=== PATIENT | male | born 1975 | race Caucasian/White ===

== ENCOUNTER 2018-11-03 18:04 | Emergency (ER) | payer SELFPAY ==
--- NOTE | 2018-11-03 19:09 | RAD REPORT ---
EXAM DESCRIPTION: CT - Stone Protocol - 11/03/2018 7:00 pm CLINICAL HISTORY: Flank pain. FLANK PAIN COMPARISON: Stone Protocol dated 04/09/2017 TECHNIQUE: Axial images were obtained without oral or IV contrast. Lack of contrast limits solid org an and vascular assessment. The [id number] spans the entirety of the system partially obscuring uppermost abdomen and lung bases. Coronal reformatted images were obtained and reviewed. All CT scans are performed using dose optimization technique as appropriate and may include automated exposure control or mA/KV adjustment according to patient size. FINDINGS: The lower lung miranda are clear. Imaged portions of the liver and spleen show no suspicious findings on non-contrast imaging. The panc reas and adrenal glands are normal. No pathologic lymphadenopathy in the abdomen or pelvis. 5 mm calculus is present in the inferior left kidney without hydronephrosis. Additional punctate uppe r pole left renal calculus. No additional stone seen. No bowel obstruction, free air, free fluid or abscess. Appendectomy. No significant bony abnormality. IMPRESSION: Left nephrolithiasis without hydronephrosis.
[2018-11-03 19:10] LABS: Absolute Lymphocytes (CBC) 3.1 K/uL (0.7-4.9); Absolute Monocytes 1.1 K/uL (0.1-1.3); Absolute Neutrophil 8.2 K/uL (1.8-8.0); Basophils % 0.2 % (0-1.3); Hematocrit 50.7 % (39.6-49.0); Lymphocytes % 24.9 % (15.3-44.8); Monocytes % 8.8 % (3.3-12.3); RBC Red Blood Cell Count 5.76 M/uL (4.33-5.43)
[2018-11-03] MEDS ORDERED: MORPHINE 4 MG/ML SYR ONE ×2 (19:16→21:00)
[2018-11-03] MEDS ORDERED: KETOROLAC 30 MG/ML INJ ONE (19:16)
[2018-11-03] MEDS ORDERED: NA CHLORIDE 0.9% 1,000 ML ONE (19:16)
[2018-11-03] MEDS ORDERED: ONDANSETRON 4 MG/2 ML VIAL ONE (19:16)
[2018-11-03 19:19] LABS: ALT/SGPT 52 U/L (12-78); AST/SGOT 20 U/L (15-37); Albumin 3.9 g/dL (3.4-5.0); Alkaline Phosphatase 115 U/L (45-117); BUN Blood Urea Nitrogen 14 mg/dL (7-18); Bicarbonate 26 mmol/L (21-32); Bilirubin Direct < 0.1 mg/dL (0-0.2); Bilirubin Total 0.3 mg/dL (0.2-1.0); Glucose Level 85 mg/dL (74-106); Lipase 119 U/L (73-393); Potassium 3.7 mmol/L (3.5-5.1); Protein, Total 8.2 g/dL (6.4-8.2); Sodium Level 142 mmol/L (136-145)
[2018-11-03 19:20] LABS: Urine Blood TRACE (NEG); Urine Glucose NEGATIVE (NEG); Urine Protein NEGATIVE (NEG); Urine pH 5.5 (5.0-7.0)
[2018-11-03 19:20] LABS: Urine Bacteria <20 /HPF (NONE SEEN); Urine Culture Reflex Order NOT NEEDED
[2018-11-03] MEDS ORDERED: CIPROFLOXACIN HCL 500 MG TAB ONE (20:59)
[2018-11-03] MEDS ORDERED: TAMSULOSIN 0.4 MG SR CAP ONE (21:00)
--- NOTE | 2018-11-03 21:19 | EDPHYS ---
Physician Documentation [facility] Name: Joel Escamilla Jr Age: 43 yrs Sex: Male : 1975 Arrival Date: 11/03/2018 Time: 18:06 Bed 2 Private MD: ED Physician Lang Bonilla HPI: 11/03 19:30 This 43 yrs old Male presents to ER via Ambulatory with complaints of pm1 Possible Kidney Stone. 19:30 The patient complains of pain in the left low back and right low back. The pain pm1 radiates to the right lower quadrant and left lower quadrant. Onset: The symptoms/episode began/occurred this morning. Modifying factors: The symptoms are alleviated by nothing. the symptoms are aggravated by nothing. Associated signs and symptoms: Pertinent positives: nausea, vomiting, Pertinent negatives: dysuria, fever. Severity of pain: in the emergency department the pain is actually worse. The patient has experienced similar episodes in the past, a few times, and the symptoms today are exactly the same, to previous kidney stones. The patient has not recently seen a physician. Historical: - Allergies: 18:48 No Known Allergies; ph - Home Meds: 18:48 None [Active]; ph - PMHx: 18:48 Ulcers; Kidney stones; ph - PSHx: 18:48 None; ph - Immunization history:: Adult Immunizations unknown. - Social history:: Smoking status: Patient uses tobacco products, denies chronic smoking, but will smoke occasionally. - Ebola Screening: : No symptoms or risks identified at this time. ROS: 19:30 Constitutional: Negative for fever, chills, and weight loss, Eyes: Negative for injury, pm1 pain, redness, and discharge, ENT: Negative for injury, pain, and discharge, Neck: Negative for injury, pain, and swelling, Cardiovascular: Negative for chest pain, palpitations, and edema, Respiratory: Negative for shortness of breath, cough, wheezing, and pleuritic chest pain. 19:30 : Negative for injury, bleeding, discharge, and swelling, MS/Extremity: Negative for injury and deformity, Skin: Negative for injury, rash, and discoloration, Neuro: Negative for headache, weakness, numbness, tingling, and seizure. 19:30 Abdomen/GI: Positive for abdominal pain, nausea and vomiting, of the right lower quadrant and left lower quadrant. 19:30 Back: Positive for flank pain, bilaterally, Negative for pain with movement. Exam: 19:30 Constitutional: This is a well developed, well nourished patient who is awake, alert, pm1 and in no acute distress. Head/Face: Normocephalic, atraumatic. Eyes: Pupils equal round and reactive to light, extra-ocular motions intact. Lids and lashes normal. Conjunctiva and sclera are non-icteric and not injected. Cornea within normal limits. Periorbital areas with no swelling, redness, or edema. ENT: Nares patent. No nasal discharge, no septal abnormalities noted. Tympanic membranes are normal and external auditory canals are clear. Oropharynx with no redness, swelling, or masses, exudates, or evidence of obstruction, uvula midline. Mucous membranes moist. Neck: Trachea midline, no thyromegaly or masses palpated, and no cervical lymphadenopathy. Supple, full range of motion without nuchal rigidity, or vertebral point tenderness. No Meningismus. Chest/axilla: Normal chest wall appearance and motion. Nontender with no deformity. No lesions are appreciated. Cardiovascular: Regular rate and rhythm with a normal S1 and S2. No gallops, murmurs, or rubs. Normal PMI, no JVD. No pulse deficits. Respiratory: Lungs have equal breath sounds bilaterally, clear to auscultation and percussion. No rales, rhonchi or wheezes noted. No increased work of breathing, no retractions or nasal flaring. Abdomen/GI: Soft, non-tender, with normal bowel sounds. No distension or tympany. No guarding or rebound. No evidence of tenderness throughout. 19:30 Skin: Warm, dry with normal turgor. Normal color with no rashes, no lesions, and no evidence of cellulitis. MS/ Extremity: Pulses equal, no cyanosis. Neurovascular intact. Full, normal range of motion. 19:30 Back: pain, that is moderate, of the left low back and right low back, normal spinal alignment noted. 19:30 Neuro: Orientation: is normal, Motor: is normal, moves all fours, Sensation: is normal, no obvious gross deficits, Gait: is steady, at a normal pace, without difficulty. Vital Signs: 18:48 BP 164 / 121; Pulse 108; Resp 22; Temp 98.3; Pulse Ox 98% on R/A; Weight 108.86 kg; ph Height 5 ft. 10 in. (177.80 cm); Pain 8/10; 19:53 BP 133 / 86; Pulse 97; Resp 17; Pulse Ox 100% on R/A; Pain 8/10; ed1 19:54 Pain 8/10; ed1 19:54 Pain 8/10; ed1 21:10 BP 122 / 81; Pulse 75; Resp 18; Pulse Ox 100% on R/A; Pain 6/10; ed1 21:11 Pain 6/10; ed1 18:48 Body Mass Index 34.44 (108.86 kg, 177.80 cm) ph MDM: 18:36 Patient medically screened. pm1 20:28 Data reviewed: vital signs. Data interpreted: Pulse oximetry: on room air is 100 %. pm1 Interpretation: normal. 21:16 Counseling: I had a detailed discussion with the patient and/or guardian regarding: the pm1 historical points, exam findings, and any diagnostic results supporting the discharge/admit diagnosis, lab results, radiology results, the need for outpatient follow up, to return to the emergency department if symptoms worsen or persist or if there are any questions or concerns that arise at home. 11/03 18:43 Order name: Basic Metabolic Panel pm1 11/03 18:43 Order name: CBC with Diff; Complete Time: 19:30 pm1 11/03 18:43 Order name: Creatinine for Radiology; Complete Time: 19:30 pm1 11/03 18:43 Order name: Hepatic Function; Complete Time: 19:30 pm1 11/03 18:43 Order name: Lipase; Complete Time: 19:30 pm1 11/03 18:43 Order name: Urine Microscopic Only; Complete Time: 19:30 pm1 11/03 18:43 Order name: CT Stone Protocol; Complete Time: 19:30 pm1 11/03 18:44 Order name: Basic Metabolic Panel; Complete Time: 19:30 EDMS 11/03 19:07 Order name: Urine Dipstick--Ancillary (enter results); Complete Time: 19:30 ar5 11/03 18:43 Order name: IV Saline Lock; Complete Time: 18:51 pm1 11/03 18:43 Order name: Labs collected and sent; Complete Time: 18:52 pm1 11/03 18:43 Order name: Urine Dipstick-Ancillary (obtain specimen); Complete Time: 18:54 pm1 Administered Medications: 19:18 Drug: morphine 4 mg Route: IVP; Site: right antecubital; lp1 19:54 Follow up: Pain 8/10 Adult; Response: No adverse reaction; Pain is unchanged, physician ed1 notified 19:19 Drug: NS 0.9% 1000 ml Route: IV; Rate: 1 bolus; Site: right antecubital; lp1 20:54 Follow up: IV Status: Completed infusion; IV Intake: 1000ml ed1 19:19 Drug: TORadol 30 mg Route: IVP; Site: right antecubital; lp1 19:54 Follow up: Pain 8/10 Adult; Response: No adverse reaction; Pain is unchanged, physician ed1 notified 19:19 Drug: Zofran 4 mg Route: IVP; Site: right antecubital; lp1 19:55 Follow up: Response: No adverse reaction; Nausea is decreased ed1 20:53 Drug: morphine 4 mg Route: IVP; Site: right antecubital; ed1 21:11 Follow up: Pain 6/10 Adult; Response: No adverse reaction; Pain is decreased ed1 20:54 Drug: Flomax 0.4 mg Route: PO; ed1 21:12 Follow up: Response: No adverse reaction ed1 20:54 Drug: Cipro 500 mg Route: PO; ed1 21:12 Follow up: Response: No adverse reaction ed1 Disposition: 11/03/18 21:18 Discharged to Home. Impression: Left nephrolithiasis without hydronephrosis, Low back pain. - Condition is Stable. - Discharge Instructions: Flank Pain, Adult, Kidney Stones, [id number], Dietary Guidelines to Help Prevent Kidney Stones. - Prescriptions for Tylenol- Codeine #3 300-30 mg Oral Tablet - take 2 tablets by ORAL route every 6 hours As needed; 20 tablet. Zofran 4 mg Oral Tablet - take 1 tablet by ORAL route every 12 hours As needed; 20 tablet. Flomax 0.4 mg Oral Capsule, Sust. Release 24 hr - take 1 capsule by ORAL route once daily 1/2 hour following the same meal each day; 10 capsule. Cipro 500 mg Oral Tablet - take 1 tablet by ORAL route every 12 hours for 7 days; 14 tablet. - Medication Reconciliation Form, Thank You Letter, Antibiotic Education, Prescription Opioid Use form. - Follow up: Emergency Department; When: As needed; Reason: Worsening of condition. Follow up: Mesfin Girard MD; When: 2 - 3 days; Reason: Recheck today's complaints, Continuance of care, Re-evaluation by your physician. - Problem is new. - Symptoms have improved. Addendum: 11/07/2018 06:56 Co-signature as Attending Physician, Lang Bonilla MD I agree with the assessment and c heard plan of care. Signatures: Dispatcher [employer] EDNV Lang Bonilla MD MD cha Riggs, Erika, DIETITIAN HELPER DIETITIAN HELPER ed1 Fely Armijo RN RN lp1 Maxine Benjamin RN RN Bhavesh Mensah, LANDMEN LANDMEN pm1 Corrections: (The following items were deleted from the chart) 11/03 21:29 21:18 11/03/2018 21:18 Discharged to Home. Impression: Left nephrolithiasis without ed1 hydronephrosis; Low back pain. Condition is Stable. Forms are Medication Reconciliation Form, Thank You Letter, Antibiotic Education, Prescription Opioid Use. Follow up: Emergency Department; When: As needed; Reason: Worsening of condition. Follow up: Mesfin Girard; When: 2 - 3 days; Reason: Recheck today's complaints, Continuance of care, Re-evaluation by your physician. Problem is new. Symptoms have improved. pm1
--- NOTE | 2018-11-03 21:19 | ER ---
Nurse's Notes [facility] Name: Joel Escamilla Jr Age: 43 yrs Sex: Male : 1975 Arrival Date: 11/03/2018 Time: 18:06 Bed 2 Private MD: Diagnosis: Left nephrolithiasis without hydronephrosis;Low back pain Presentation: 11/03 18:46 Presenting complaint: Patient states: Prashanth flank and lower quadrant pain that began ph today, also reports trouble urinating, states, " I feel like I have to go but only a little comes out." Denies N/V/D or fever. Transition of care: patient was not received from another setting of care. Onset of symptoms was November 03, 2018. Risk Assessment: Do you want to hurt yourself or someone else? Patient reports no desire to harm self or others. Initial Sepsis Screen: Does the patient meet any 2 criteria? No. Patient's initial sepsis screen is negative. Does the patient have a suspected source of infection? No. Patient's initial sepsis screen is negative. Care prior to arrival: None. 18:46 Method Of Arrival: Ambulatory ph 18:46 Acuity: PATRICK 3 ph Historical: - Allergies: 18:48 No Known Allergies; ph - Home Meds: 18:48 None [Active]; ph - PMHx: 18:48 Ulcers; Kidney stones; ph - PSHx: 18:48 None; ph - Immunization history:: Adult Immunizations unknown. - Social history:: Smoking status: Patient uses tobacco products, denies chronic smoking, but will smoke occasionally. - Ebola Screening: : No symptoms or risks identified at this time. Screenin:47 Abuse screen: Denies threats or abuse. Denies injuries from another. Nutritional bp screening: No deficits noted. Tuberculosis screening: No symptoms or risk factors identified. Fall Risk None identified. Assessment: 18:47 General: Appears in no apparent distress. uncomfortable, Behavior is calm, cooperative, bp appropriate for age. Pain: Complains of pain in left flank and right flank. Neuro: Level of Consciousness is awake, alert, obeys commands, Oriented to person, place, time, situation, Appropriate for age. Cardiovascular: No deficits noted. Respiratory: Airway is patent Respiratory effort is even, unlabored, Respiratory pattern is regular, symmetrical. GI: Bowel sounds present X 4 quads. Abd is soft X 4 quads. : Reports pain in bilateral flank(s). EENT: No deficits noted. Derm: No deficits noted. Musculoskeletal: Circulation, motion, and sensation intact. Range of motion: intact in all extremities. 19:53 Reassessment: Patient appears in no apparent distress at this time. Patient and/or ed1 family updated on plan of care and expected duration. Pain level reassessed. Patient is alert, oriented x 3, equal unlabored respirations, skin warm/dry/pink. Pt states "The pain eased up a little bit but its back now." Patient states symptoms have not improved. 21:10 Reassessment: Patient appears in no apparent distress at this time. Patient and/or ed1 family updated on plan of care and expected duration. Pain level reassessed. Patient is alert, oriented x 3, equal unlabored respirations, skin warm/dry/pink. Patient states feeling better. Patient states symptoms have improved. Vital Signs: 18:48 BP 164 / 121; Pulse 108; Resp 22; Temp 98.3; Pulse Ox 98% on R/A; Weight 108.86 kg; ph Height 5 ft. 10 in. (177.80 cm); Pain 8/10; 19:53 BP 133 / 86; Pulse 97; Resp 17; Pulse Ox 100% on R/A; Pain 8/10; ed1 19:54 Pain 8/10; ed1 19:54 Pain 8/10; ed1 21:10 BP 122 / 81; Pulse 75; Resp 18; Pulse Ox 100% on R/A; Pain 6/10; ed1 21:11 Pain 6/10; ed1 18:48 Body Mass Index 34.44 (108.86 kg, 177.80 cm) ph ED Course: 18:06 Patient arrived in ED. as 18:36 Bhavesh Mensah, THO is PHCP. pm1 18:36 Lang Bonilla MD is Attending Physician. pm1 18:39 Jose Lindquist, BRET is Primary Nurse. bp 18:47 Triage completed. ph 18:47 Patient has correct armband on for positive identification. Bed in low position. Call bp light in reach. Side rails up X2. Adult w/ patient. 18:53 Initial lab(s) drawn, by me, sent to lab. Urine collected: clean catch specimen, clear, jb1 cleve colored. Inserted saline lock: 22 gauge in right antecubital area, using aseptic technique. Blood collected. 19:00 CT completed. Patient tolerated procedure well. Patient moved to CT via wheelchair. vr Patient moved back from CT. 19:00 CT Stone Protocol In Process Unspecified. EDMS 21:17 Mesfin Girard MD is Referral Physician. pm1 21:27 No provider procedures requiring assistance completed. IV discontinued, intact, ed1 bleeding controlled, No redness/swelling at site. Pressure dressing applied. Administered Medications: 19:18 Drug: morphine 4 mg Route: IVP; Site: right antecubital; lp1 19:54 Follow up: Pain 8/10 Adult; Response: No adverse reaction; Pain is unchanged, physician ed1 notified 19:19 Drug: NS 0.9% 1000 ml Route: IV; Rate: 1 bolus; Site: right antecubital; lp1 20:54 Follow up: IV Status: Completed infusion; IV Intake: 1000ml ed1 19:19 Drug: TORadol 30 mg Route: IVP; Site: right antecubital; lp1 19:54 Follow up: Pain 8/10 Adult; Response: No adverse reaction; Pain is unchanged, physician ed1 notified 19:19 Drug: Zofran 4 mg Route: IVP; Site: right antecubital; lp1 19:55 Follow up: Response: No adverse reaction; Nausea is decreased ed1 20:53 Drug: morphine 4 mg Route: IVP; Site: right antecubital; ed1 21:11 Follow up: Pain 6/10 Adult; Response: No adverse reaction; Pain is decreased ed1 20:54 Drug: Flomax 0.4 mg Route: PO; ed1 21:12 Follow up: Response: No adverse reaction ed1 20:54 Drug: Cipro 500 mg Route: PO; ed1 21:12 Follow up: Response: No adverse reaction ed1 Intake: 20:54 IV: 1000ml; Total: 1000ml. ed1 Outcome: 21:18 Discharge ordered by . pm1 21:27 Discharged to home ambulatory, with significant other. ed1 21:27 Condition: good 21:27 Discharge instructions given to patient, Instructed on discharge instructions, follow up and referral plans. medication usage, Demonstrated understanding of instructions, follow-up care, medications, Prescriptions given X 4. 21:29 Patient left the ED. ed1 Signatures: Dispatcher [employer] EDMS Brett Sanders jb1 Tanesha Baron Erika, ANGELO WOOD HEEL CEMENTER ed1 Gaby Maldonado Laura, BRET RN lp1 Maxine Benjamin, BRET RN ph Bhavesh Mensah, NOTCHER NOTCHER pm1 Jose Lindquist, BRET RN bp Corrections: (The following items were deleted from the chart) 18:54 18:52 Inserted saline lock: 22 gauge in right antecubital area, using aseptic jb1 technique. Blood collected. bp
[2018-11-03 21:40] VITALS: TEMP 98.3
[2018-11-03 21:42] VITALS: O2SAT 100
[2018-11-03 21:45] VITALS: BP 122/81
== END 2018-11-03 21:29 | disposition home or self-care (01) ==
LOC: ER 18:04
DX: N20.0 Calculus of kidney (principal); Z72.0 Tobacco use; Z87.442 Personal history of urinary calculi
CPT/HCPCS: 36415; 74176; 76377; 80048; 80076; 81003; 81015; 83690; 85025; 96361; 96374; 96375; 99284; J2405; J7030

== ENCOUNTER 2019-02-25 04:37 | Emergency (ER) | payer SELFPAY ==
[2019-02-25 05:20] LABS: Absolute Lymphocytes (CBC) 2.1 K/uL (0.7-4.9); Basophils % 0.4 % (0-1.3); Eosinophils % 0.6 % (0-4.4); Hematocrit 38.5 % (39.6-49.0); Lymphocytes % 29.6 % (15.3-44.8); MPV 8.3 fL (7.6-11.3); RBC Red Blood Cell Count 4.24 M/uL (4.33-5.43)
[2019-02-25] MEDS ORDERED: NA CHLORIDE 0.9% 1,000 ML ONE ×2 (05:31→08:58)
[2019-02-25] MEDS ORDERED: ONDANSETRON 4 MG/2 ML VIAL ONE ×2 (05:31→08:58)
[2019-02-25] MEDS ORDERED: MORPHINE 4 MG/ML SYR ONE ×2 (05:31→08:58)
[2019-02-25 05:37] LABS: Albumin 3.8 g/dL (3.4-5.0); Bilirubin Direct 0.2 mg/dL (0-0.2); Potassium 3.7 mmol/L (3.5-5.1); Protein, Total 6.9 g/dL (6.4-8.2)
[2019-02-25] MEDS ORDERED: MEPERIDINE HCL 50 MG/ML AMP ONE (06:38)
--- NOTE | 2019-02-25 07:55 | RAD REPORT ---
EXAM DESCRIPTION: CT - Abdomen Pelvis W Contrast - 02/25/2019 7:45 am CLINICAL HISTORY: Abdominal pain, bilateral flank pain COMPARISON: April 2015 TECHNIQUE: Biphasic, helical CT imaging of the abdomen and pelvis was performed following 100 ml non -ionic IV contrast. Oral contrast was given. All CT scans are performed using dose optimization technique as appropriate and may include automated exposure control or mA/KV adjustment according to patient size. FINDINGS: No suspicious findings in the lung bases. The liver, spleen, and pancreas show no suspicious findings. Gallbladder and biliary tree are also wi thout suspicious finding. Symmetric renal function is seen with no hydronephrosis or suspicious renal mass. No pyelonephritis o r acute parenchymal process. Small nonobstructing calculi noted on the left. Bladder is only partiall y filled. Minimal hyperdensity along the posterior wall is probably from IV contrast rather than blad missy stones. No wall thickening or mass. No adrenal abnormalities. No dilated bowel loops or bowel wall thickening. Prominence of the gastric wall along the greater cur vature nonspecific. This may be from incomplete distention of the stomach. No appendicitis findings. Patient has minimal diverticulosis without diverticulitis. No acute GI process identifiable. No free air, free fluid or inflammatory stranding. No hernia, mass or bulky lymphadenopathy. No suspicious bony findings. Disc and bony degenerative changes are present. . IMPRESSION: No acute or GI process identified to explain GI bleeding or hematuria. Patient has a few nonobstructing less than 3 mm calyx calculi on the left. Slight wall thickening along the greater curvature of the stomach is probably from incomplete distent ion rather than gastritis. No focal gastric wall mass.
--- NOTE | 2019-02-25 08:44 | ER ---
Nurse's Notes [facility] Name: Joel Escamilla Jr Age: 43 yrs Sex: Male : 1975 Arrival Date: 02/25/2019 Time: 04:40 Bed 8 Private MD: Diagnosis: Gastrointestinal hemorrhage, unspecified;Abdominal tenderness Presentation: 02/25 04:49 Presenting complaint: Patient states: I am having pain on both of my sides like when I ed1 had kidney stones. I went to the bathroom and blood was everywhere. I am also having trouble peeing. Transition of care: patient was not received from another setting of care. Onset of symptoms was February 25, 2019. Risk Assessment: Do you want to hurt yourself or someone else? Patient reports no desire to harm self or others. Initial Sepsis Screen: Does the patient meet any 2 criteria? No. Patient's initial sepsis screen is negative. Does the patient have a suspected source of infection? No. Patient's initial sepsis screen is negative. Care prior to arrival: None. 04:49 Method Of Arrival: Ambulatory ed1 04:49 Acuity: PATRICK 3 ed1 Triage Assessment: 04:50 General: Appears distressed, uncomfortable, Behavior is anxious. Pain: Complains of ed1 pain in abdomen Pain currently is 9 out of 10 on a pain scale. GI: Reports rectal bleeding. Historical: - Allergies: 04:50 No Known Allergies; ed1 - Home Meds: 04:50 None [Active]; ed1 - PMHx: 04:50 Kidney stones; Ulcers; ed1 - PSHx: 04:50 None; ed1 - Immunization history:: Adult Immunizations up to date. - Social history:: Smoking status: Patient uses tobacco products, smokes one-half pack cigarettes per day. - Ebola Screening: : Patient negative for fever greater than or equal to 101.5 degrees Fahrenheit, and additional compatible Ebola Virus Disease symptoms Patient denies exposure to infectious person Patient denies travel to an Ebola-affected area in the 21 days before illness onset No symptoms or risks identified at this time. - Family history:: not pertinent. - Hospitalizations: : No recent hospitalization is reported. Screenin:10 Abuse screen: Denies threats or abuse. Denies injuries from another. Nutritional aa1 screening: No deficits noted. Tuberculosis screening: No symptoms or risk factors identified. Fall Risk None identified. Assessment: 05:10 General: Appears in no apparent distress. uncomfortable, Behavior is cooperative, aa1 appropriate for age, restless. Pain: Complains of pain in left lower quadrant and right lower quadrant Pain currently is 10 out of 10 on a pain scale. Is continuous. Neuro: Level of Consciousness is awake, alert, obeys commands, Oriented to person, place, time, situation, Moves all extremities. Speech is normal. Cardiovascular: Denies chest pain, diaphoresis, palpitations, shortness of breath. Respiratory: Airway is patent Respiratory effort is even, unlabored, Respiratory pattern is regular, symmetrical. GI: Abdomen is non-distended, Bowel sounds present X 4 quads. Abd is soft X 4 quads Reports lower abdominal pain, rectal bleeding. : Reports urinary retention. EENT: No signs and/or symptoms were reported regarding the EENT system. Derm: Skin is intact, is healthy with good turgor, Skin is pink, warm \T\ dry. Musculoskeletal: Circulation, motion, and sensation intact. Capillary refill < 3 seconds. 06:05 Reassessment: Patient appears in no apparent distress at this time. Patient and/or aa1 family updated on plan of care and expected duration. Pain level reassessed. Patient is alert, oriented x 3, equal unlabored respirations, skin warm/dry/pink. Pt awaiting CT scan. 06:50 Reassessment: Patient appears in no apparent distress at this time. Patient and/or aa1 family updated on plan of care and expected duration. Pain level reassessed. Patient is alert, oriented x 3, equal unlabored respirations, skin warm/dry/pink. Pt assisted to restroom. 07:30 Reassessment: Patient appears in no apparent distress at this time. Patient and/or ph family updated on plan of care and expected duration. Pain level reassessed. Patient is alert, oriented x 3, equal unlabored respirations, skin warm/dry/pink. 09:00 Reassessment: Patient appears in no apparent distress at this time. Patient and/or ph family updated on plan of care and expected duration. Pain level reassessed. Patient is alert, oriented x 3, equal unlabored respirations, skin warm/dry/pink. Pt sitting in bedside chair, VSS, d/c pending completion of IV antibiotics. 10:15 Reassessment: Patient appears in no apparent distress at this time. Patient and/or ph family updated on plan of care and expected duration. Pain level reassessed. Patient is alert, oriented x 3, equal unlabored respirations, skin warm/dry/pink. Pt d/c home w/ . Vital Signs: 04:50 BP 147 / 87; Pulse 109; Resp 22; Temp 98.3(O); Pulse Ox 99% on R/A; Weight 95.25 kg; ed1 Height 5 ft. 10 in. (177.80 cm); Pain 9/10; 06:05 BP 108 / 61; Pulse 111; Resp 16; Pulse Ox 100% on R/A; aa1 07:15 BP 122 / 76; Pulse 98; Resp 18; Pulse Ox 98% on R/A; Pain 6/10; ph 08:30 BP 137 / 86; Pulse 91; Resp 16; Pulse Ox 99% on R/A; ph 04:50 Body Mass Index 30.13 (95.25 kg, 177.80 cm) ed1 ED Course: 04:40 Patient arrived in ED. es 04:50 Triage completed. ed1 04:50 Arm band placed on. ed1 04:56 Leoncio Ambrose MD is Attending Physician. rn 05:10 Patient has correct armband on for positive identification. Placed in gown. Bed in low aa1 position. Call light in reach. clam treader on. Pulse ox on. NIBP on. 05:18 Initial lab(s) drawn, by me, sent to lab. Inserted saline lock: 22 gauge in right kj1 antecubital area, using aseptic technique. 06:55 Report given to Gideon \Chirag\ BLANCA. aa1 07:12 Maxine Benjamin, RN is Primary Nurse. ph 07:28 Attending Physician role handed off by Leoncio Ambrose MD bob 07:28 Lang Bonilla MD is Attending Physician. bob 07:46 CT Abd/Pelvis - W/Contrast In Process Unspecified. EDMS 08:43 Evan Chambers MD is Referral Physician. bob 10:20 No provider procedures requiring assistance completed. IV discontinued, intact, ph bleeding controlled, No redness/swelling at site. Pressure dressing applied. Administered Medications: 05:29 Drug: NS 0.9% 1000 ml Route: IV; Rate: 1000 ml; Site: left upper arm; aa1 08:00 Follow up: Response: No adverse reaction; IV Status: Completed infusion; IV Intake: ph 1000ml 05:30 Drug: morphine 4 mg Route: IVP; Site: left upper arm; aa1 06:30 Follow up: Response: No adverse reaction; Pain is unchanged, physician notified aa1 05:30 Drug: Zofran 4 mg Route: IVP; Site: left upper arm; aa1 06:40 Follow up: Response: No adverse reaction; Nausea is decreased aa1 06:35 Drug: Demerol 50 mg Route: IVP; Site: left upper arm; aa1 07:15 Follow up: Response: No adverse reaction; Pain is decreased ph 08:53 Drug: Zofran 4 mg Route: IVP; Site: left antecubital; ph 09:30 Follow up: Response: No adverse reaction ph 08:55 Drug: morphine 4 mg Route: IVP; Site: left antecubital; ph 09:30 Follow up: Response: No adverse reaction; Pain is decreased ph 09:00 Drug: NS 0.9% 1000 ml Route: IV; Rate: 1000 ml; Site: left femoral; ph 13:33 Follow up: Response: No adverse reaction; IV Status: Completed infusion; IV Intake: ph 1000ml 09:00 Drug: Cipro 400 mg Volume: 200 ml; Route: IVPB; Infused Over: 60 mins; Site: left ph antecubital; 10:00 Follow up: Response: No adverse reaction; IV Status: Completed infusion ph 09:00 Drug: Flagyl 500 mg Volume: 100 ml; Route: IVPB; Rate: 200 ml/hr; Infused Over: 30 ph mins; Site: left antecubital; 09:30 Follow up: Response: No adverse reaction; IV Status: Completed infusion ph Intake: 08:00 IV: 1000ml; Total: 1000ml. ph 13:33 IV: 1000ml; Total: 2000ml. ph Outcome: 08:44 Discharge ordered by . bob 10:29 Patient left the ED. ph 10:29 Discharged to home ambulatory, with significant other. ph 10:29 Condition: improved 10:29 Discharge instructions given to patient, significant other, Instructed on discharge instructions, follow up and referral plans. medication usage, Demonstrated understanding of instructions, follow-up care, medications, Prescriptions given X 4. Signatures: Dispatcher [employer] Vivienne Flores RN RN aa1 Lang Bonilla MD MD cha Salyer, Leoncio Julien MD MD rn Riggs, Erika RN RN ed1 Maxine Benjamin RN RN [facility], [place] kj1
--- NOTE | 2019-02-25 08:45 | EDPHYS ---
Physician Documentation [facility] [place], [place] Name: Joel Escamilla Jr Age: 43 yrs Sex: Male : 1975 Arrival Date: 02/25/2019 Time: 04:40 Bed 8 Private MD: RAYMUNDO Physician Lang Bonilla HPI: 02/25 05:29 This 43 yrs old Male presents to ER via Ambulatory with complaints of Rectal rn Bleeding, Urinary Retention, Abdominal Pain. 05:29 The patient presents to the emergency department with bleeding from the rectum/anus. rn Onset: The symptoms/episode began/occurred today. Modifying factors: The symptoms are alleviated by nothing, The symptoms are aggravated by bowel movement. Associate signs and symptoms: Pertinent positives: abdominal pain in the right lower quadrant and left lower quadrant, lower GI bleeding. The patient has not experienced similar symptoms in the past. The patient has not recently seen a physician. REports sudden onset bilateral lower abd pain with rectal bleeding, more blood than stool, has never had this happen, states pain similar to kidney stones but doesn't feel like kidney stones, feels different. No blood thinners. . Historical: - Allergies: 04:50 No Known Allergies; ed1 - Home Meds: 04:50 None [Active]; ed1 - PMHx: 04:50 Kidney stones; Ulcers; ed1 - PSHx: 04:50 None; ed1 - Immunization history:: Adult Immunizations up to date. - Social history:: Smoking status: Patient uses tobacco products, smokes one-half pack cigarettes per day. - Ebola Screening: : Patient negative for fever greater than or equal to 101.5 degrees Fahrenheit, and additional compatible Ebola Virus Disease symptoms Patient denies exposure to infectious person Patient denies travel to an Ebola-affected area in the 21 days before illness onset No symptoms or risks identified at this time. - Family history:: not pertinent. - Hospitalizations: : No recent hospitalization is reported. ROS: 05:29 Constitutional: Negative for fever, chills, and weight loss, Eyes: Negative for injury, rn pain, redness, and discharge, Neck: Negative for injury, pain, and swelling, Cardiovascular: Negative for chest pain, palpitations, and edema, Respiratory: Negative for shortness of breath, cough, wheezing, and pleuritic chest pain, Abdomen/GI: Negative for vomiting, diarrhea, and constipation, MS/Extremity: Negative for injury and deformity, Skin: Negative for injury, rash, and discoloration, Neuro: Negative for headache, weakness, numbness, tingling, and seizure. Exam: 05:29 Constitutional: This is a well developed, well nourished patient who is awake, alert, rn appears uncomfortable Head/Face: Normocephalic, atraumatic. Eyes: Pupils equal round and reactive to light, extra-ocular motions intact. Lids and lashes normal. Conjunctiva and sclera are non-icteric and not injected. Cornea within normal limits. Periorbital areas with no swelling, redness, or edema. ENT: MMM Cardiovascular: tachycardic, regular, no murmur Respiratory: Mild tachypnea, no wheezing Abdomen/GI: soft, + tender bilateral lower quadrants, no rebound, + guarding MS/ Extremity: Pulses equal, no cyanosis. Neurovascular intact. Full, normal range of motion. Equal circumference. Neuro: Awake, alert, GCS 15 08:38 Abdomen/GI: Rectal exam: is unremarkable, rectal tone normal, Stool: guaiac negative, bob hemorrhoid(s), are not appreciated, mass, is not appreciated, swelling, is not appreciated, tenderness, is not appreciated. Vital Signs: 04:50 BP 147 / 87; Pulse 109; Resp 22; Temp 98.3(O); Pulse Ox 99% on R/A; Weight 95.25 kg; ed1 Height 5 ft. 10 in. (177.80 cm); Pain 9/10; 06:05 BP 108 / 61; Pulse 111; Resp 16; Pulse Ox 100% on R/A; aa1 07:15 BP 122 / 76; Pulse 98; Resp 18; Pulse Ox 98% on R/A; Pain 6/10; ph 08:30 BP 137 / 86; Pulse 91; Resp 16; Pulse Ox 99% on R/A; ph 04:50 Body Mass Index 30.13 (95.25 kg, 177.80 cm) ed1 MDM: 04:56 Patient medically screened. rn 07:39 Patient medically screened. bob 08:40 Data reviewed: vital signs, nurses notes, lab test result(s), radiologic studies, plain bob films. 02/25 05:04 Order name: Basic Metabolic Panel; Complete Time: 05:56 rn 02/25 05:04 Order name: CBC with Diff; Complete Time: 05:29 rn 02/25 05:04 Order name: Hepatic Function; Complete Time: 05:56 rn 02/25 05:04 Order name: Lipase; Complete Time: 05:56 rn 02/25 05:04 Order name: Type And Screen; Complete Time: 06:45 rn 02/25 08:08 Order name: Urine Dipstick--Ancillary (enter results) mw2 05 05:29 Order name: CT Abd/Pelvis - W/Contrast rn 02/25 05:04 Order name: IV Saline Lock; Complete Time: 05:18 rn 05 05:04 Order name: Labs collected and sent; Complete Time: 05:18 rn Administered Medications: 05:29 Drug: NS 0.9% 1000 ml Route: IV; Rate: 1000 ml; Site: left upper arm; aa1 08:00 Follow up: Response: No adverse reaction; IV Status: Completed infusion; IV Intake: ph 1000ml 05:30 Drug: morphine 4 mg Route: IVP; Site: left upper arm; aa1 06:30 Follow up: Response: No adverse reaction; Pain is unchanged, physician notified aa1 05:30 Drug: Zofran 4 mg Route: IVP; Site: left upper arm; aa1 06:40 Follow up: Response: No adverse reaction; Nausea is decreased aa1 06:35 Drug: Demerol 50 mg Route: IVP; Site: left upper arm; aa1 07:15 Follow up: Response: No adverse reaction; Pain is decreased ph 08:53 Drug: Zofran 4 mg Route: IVP; Site: left antecubital; ph 09:30 Follow up: Response: No adverse reaction ph 08:55 Drug: morphine 4 mg Route: IVP; Site: left antecubital; ph 09:30 Follow up: Response: No adverse reaction; Pain is decreased ph 09:00 Drug: NS 0.9% 1000 ml Route: IV; Rate: 1000 ml; Site: left femoral; ph 13:33 Follow up: Response: No adverse reaction; IV Status: Completed infusion; IV Intake: ph 1000ml 09:00 Drug: Cipro 400 mg Volume: 200 ml; Route: IVPB; Infused Over: 60 mins; Site: left ph antecubital; 10:00 Follow up: Response: No adverse reaction; IV Status: Completed infusion ph 09:00 Drug: Flagyl 500 mg Volume: 100 ml; Route: IVPB; Rate: 200 ml/hr; Infused Over: 30 ph mins; Site: left antecubital; 09:30 Follow up: Response: No adverse reaction; IV Status: Completed infusion ph Disposition: 02/25/19 08:44 Discharged to Home. Impression: Gastrointestinal hemorrhage, unspecified, Abdominal tenderness. - Condition is Stable. - Discharge Instructions: Abdominal Pain, Adult, Diverticulosis, Gastrointestinal Bleeding, Kidney Stones, Rectal Bleeding, Kidney Stones, [id number], Abdominal Pain, Adult, [id number], Gastrointestinal Bleeding, [id number], Rectal Bleeding, [id number]. - Prescriptions for Bentyl 20 mg Oral Tablet - take 1 tablet by ORAL route every 6 hours As needed; 20 tablet. Flagyl 500 mg Oral Tablet - take 1 tablet by ORAL route every 8 hours for 10 days; 30 tablet. Pepcid 20 mg Oral Tablet - take 1 tablet by ORAL route every 12 hours for 10 days; 20 tablet. Cipro 500 mg Oral Tablet - take 1 tablet by ORAL route every 12 hours for 7 days; 20 tablet. - Medication Reconciliation Form, Thank You Letter, Antibiotic Education, Prescription Opioid Use form. - Follow up: Private Physician; When: 2 - 3 days; Reason: Recheck today's complaints, Continuance of care, Re-evaluation by your physician. Follow up: Evan Chambers MD; When: 2 - 3 days; Reason: Recheck today's complaints, Re-evaluation by your physician. - Problem is new. - Symptoms have improved. Signatures: Dispatcher [employer] EDMS Vivienne Gonzalez RN RN aa1 Lang Bonilla MD MD cha Nieto, Roman, MD MD rn Smirch, Shelby, RN RN ss Marcie Null RN RN ed1 Maxine Benjamin RN RN ph Corrections: (The following items were deleted from the chart) 10:29 08:44 02/25/2019 08:44 Discharged to Home. Impression: Gastrointestinal hemorrhage, ph unspecified; Abdominal tenderness. Condition is Stable. Forms are Medication Reconciliation Form, Thank You Letter, Antibiotic Education, Prescription Opioid Use. Follow up: Private Physician; When: 2 - 3 days; Reason: Recheck today's complaints, Continuance of care, Re-evaluation by your physician. Follow up: Evan Chambers; When: 2 - 3 days; Reason: Recheck today's complaints, Re-evaluation by your physician. Problem is new. Symptoms have improved. bob
[2019-02-25] MEDS ORDERED: METRONIDAZOLE 500mg IVPB 500 MG/100 ML BAG IV ONE (08:58)
[2019-02-25] MEDS ORDERED: CIPROFLOXACIN 400mg IV 400 MG/200 ML BAG IV ONE (08:58)
[2019-02-25 10:38] VITALS: TEMP 98.3
[2019-02-25 10:43] VITALS: BP 137/86; O2SAT 99
[2019-02-25 14:01] LABS: Urine Blood NEGATIVE (NEG); Urine Glucose NEGATIVE (NEG); Urine Protein 1+ (NEG); Urine Specific Gravity >1.030 (1.005-1.030); Urine pH 5.5 (5.0-7.0)
== END 2019-02-25 10:29 | disposition home or self-care (01) ==
LOC: ER 04:37
DX: K92.2 Gastrointestinal hemorrhage, unspecified (principal); R10.819 Abdominal tenderness, unspecified site; F17.210 Nicotine dependence, cigarettes, uncomplicated
CPT/HCPCS: 36415; 74177; 80048; 80076; 81003; 83690; 85025; 86850; 86900; 86901; 99284; J0744; J2175; J2405; J7030; Q9967